=== PATIENT | male | born 1935 | race Caucasian/White ===

== ENCOUNTER 2018-05-12 12:10 | Emergency (ER) | payer MEDICARE, OTHER ==
[~2018-05-12] VITALS: Ht 180.3 cm; Wt 90.9 kg
[2018-05-12 12:11] VITALS: Ht 180.3 cm; Wt 90.9 kg
[2018-05-12] MEDS ORDERED: COZAAR100 MG PO (12:18)
[2018-05-12] MEDS ORDERED: VITAMIN B-121000 MCG (12:19)
[2018-05-12] MEDS ORDERED: VITAMIN D250000 UNIT (12:20)
[2018-05-12] MEDS ORDERED: COUMADIN6 MG (12:20)
[2018-05-12] MEDS ORDERED: COUMADIN5 MG PO (12:21)
[2018-05-12] MEDS ORDERED: PROBIOTIC250 MG (12:22)
[2018-05-12] MEDS ORDERED: METOPROLOL TAR100 M1 PO (12:22)
[2018-05-12] MEDS ORDERED: PROSCAR5 MG (12:22)
[2018-05-12 13:32] LABS: BASOPHILS 0.4 % (0-2); EOSINOPHILS 0.6 % (0-7); HEMATOCRIT 48.3 % (42.0-54.0); HEMOGLOBIN 16.3 g/dL (13.5-17.5); IMMATURE GRANULOCYTES 0.1 % (0-5); LYMPHOCYTES 20.8 % (15-50); MCH 32.4 pg (26.0-34.0); MCHC 33.7 g/dL (31.0-37.0); MEAN PLATELET VOLUME 12.1 fL (7.4-10.4); MONOCYTES 12.1 % (2-11); PLATELET COUNT 120 10x3/uL (130-400); RBC 5.03 10x6/uL (4.20-6.10); RDW 13.6 % (11.5-14.5); WBC 7.2 10x3/uL (4.8-10.8)
[2018-05-12 13:45] LABS: APPEARANCE CLOUDY (CLEAR); BILIRUBIN NEGATIVE (NEGATIVE); COLOR STRAW (YELLOW); GLUCOSE NEGATIVE (NEGATIVE); KETONE NEGATIVE (NEGATIVE); NITRITE NEGATIVE (NEGATIVE); PROTEIN NEGATIVE (NEGATIVE); SPECIFIC GRAVITY 1.005 (1.005-1.020); UROBILINOGEN NORMAL (NORMAL)
[2018-05-12 13:48] LABS: ALBUMIN 3.6 g/dL (3.4-5.0); ANION GAP 8.7 mmol/L (8-16); BILIRUBIN - TOTAL 1.01 mg/dL (0.2-1.3); CALCIUM 9.3 mg/dL (8.5-10.1); CREATININE - SERUM 1.1 mg/dL (0.6-1.3); POTASSIUM - SERUM 3.7 mmol/L (3.5-5.1); PROTEIN - SERUM 7.7 g/dL (6.4-8.2)
[2018-05-12 13:51] LABS: BACTERIA MANY /hpf (NONE SEEN); EPITHELIAL CELLS 0-5 /hpf (0-5)
[2018-05-12 13:58] LABS: INR 1.43 (0.85-1.17)
[2018-05-12 17:38] VITALS: BP 175/89
== END 2018-05-12 18:07 ==
LOC: D.ER 12:10
PROVIDERS: Emergency Medicine
DX: R53.1 Weakness (principal); L03.116 Cellulitis of left lower limb; Z91.81 History of falling; N39.0 Urinary tract infection, site not specified; R42 Dizziness and giddiness; I10 Essential (primary) hypertension